=== PATIENT | male | born 1945 | race African-American/Black ===

== ENCOUNTER 2019-04-29 06:06 | Day surgery (SDC) | payer OTHER, MEDICARE ==
[2019-04-17 12:23] VITALS: BMI 34.9
[2019-04-29] MEDS ORDERED: CYCLOPENTOLATE HCL 1% OPHTH SOLN 2 ML BOTTLE OD SCH (07:00)
[2019-04-29] MEDS ORDERED: PHENYLEPHRINE 2.5% OPHTH SOLN 15 ML BOTTLE OD SCH (07:00)
[2019-04-29] MEDS ORDERED: TROPICAMIDE 1% OPHTH SOLN 15 ML BOTTLE OD SCH (07:00)
[2019-04-29] MEDS ORDERED: OFLOXACIN 0.3% OPHTHALMIC SOLUTION 5 ML BOTTLE OD SCH (07:00)
[2019-04-29] MEDS ORDERED: KETOROLAC TROMETHAMINE 0.5% EYE DROP 1 DROP DROPS OD SCH (07:00)
[2019-04-29] MEDS ORDERED: TROPICAMIDE 1% OPHTH SOLN 15 ML BOTTLE ONE (07:02)
[2019-04-29] MEDS ORDERED: EPINEPHrine/PF 1 MG/1 ML (1:1,000) AMPULE ONE (07:13)
[2019-04-29] MEDS ORDERED: BETAXOLOL HCL 0.25% OPHTHALMIC 10 ML DROPSBTL ONE (07:13)
[2019-04-29] MEDS ORDERED: BACITRACIN/POLYMYXIN OPH OINT 3.5 GM TUBE ONE (07:13)
[2019-04-29] MEDS ORDERED: TETRACAINE 0.5% OPHTH SOLN 2 ML BOTTLE ONE (07:13)
[2019-04-29] MEDS ORDERED: EPI-SHUGARCAINE (EPINEPHRINE 0.025% & LIDOCAINE-PF 0.75%) 4ML ONE (07:13)
[2019-04-29] MEDS ORDERED: POVIDONE-IODINE 5% OPHTHALMIC PREP 30 ML SOLUTION ONE (07:13)
[2019-04-29] MEDS ORDERED: NEO/POLYMYX B SULF/DEXAMETH OPHTHALMIC 5ML BOTTLE ONE (07:14)
[2019-04-29] MEDS ORDERED: OFLOXACIN 0.3% OPHTHALMIC SOLUTION 5 ML BOTTLE OD ONE ×3 (07:20→07:30)
[2019-04-29] MEDS ORDERED: TROPICAMIDE 1% OPHTH SOLN 15 ML BOTTLE OD ONE ×3 (07:20→07:30)
[2019-04-29] MEDS ORDERED: PHENYLEPHRINE 2.5% OPHTH SOLN 15 ML BOTTLE OD ONE ×3 (07:20→07:30)
[2019-04-29] MEDS ORDERED: KETOROLAC TROMETHAMINE 0.5% EYE DROP 1 DROP DROPS OD ONE ×3 (07:20→07:30)
[2019-04-29] MEDS ORDERED: CYCLOPENTOLATE HCL 1% OPHTH SOLN 2 ML BOTTLE OD ONE ×3 (07:20→07:30)
[2019-04-29] MEDS ORDERED: MIDAZOLAM HCL 2 MG/2 ML SINGLE DOSE VIAL ONE (07:50)
[2019-04-29] MEDS ORDERED: TRYPAN BLUE 0.5 ML DISP.SYRIN ONE (08:07)
[2019-04-29] MEDS ORDERED: ACETAMINOPHEN 325 MG TABLET (FP) PO PRN (09:07)
[2019-04-29 10:09] VITALS: TEMP 98.1
[2019-04-29 10:12] VITALS: BP 125/70; PULSE 68
--- NOTE | 2019-04-29 10:56 | OP ---
DATE OF OPERATION: 04/29/2019 PREOPERATIVE DIAGNOSIS: Cataract, right eye. POSTOPERATIVE DIAGNOSIS: Cataract, right eye, myotic pupil, hypermature cataract. SURGEON: Jeet Maria MD SEWING MACHINE OPERATOR: Edel Ponce MD ANESTHESIA: Topical with sedation. ESTIMATED BLOOD LOSS: Less than 1 mL. COMPLICATIONS: None. SPECIMENS: None. DESCRIPTION OF PROCEDURE: The patient was identified in the holding area. After all risks, benefits, and alternatives were explained to the patient, informed consent was obtained. The right eye was marked with a marking pen. The patient then entered the operating room on an eye stretcher. After a formal time-out was performed, topical tetracaine eye drops were instilled onto the right eye. The right eye was then prepped and draped in the usual sterile fashion. An eyelid speculum was placed beneath the eyelid of the right eye. Prior to prepping and draping, the patient was asked to sit up, and the cardinal axes of astigmatism were marked using a Toric bubble marker and a Toric marking pen. Then, again, the right eye was prepped and draped in the usual sterile fashion. Then after the eyelid speculum was placed beneath the eyelid, it was noted that the pupil was myotic about 3.5 mm. Therefore, a superotemporal paracentesis incision was created using a 15-degree blade. Prior to the incision, the axis of astigmatism was marked onto the cornea, which was noted to be about 17.5 degrees. That was performed using a Toric dial and Toric marking pen. After the 15-degree blade was used to make a superotemporal incision, preservative-free epinephrine and preservative-free lidocaine were then injected into the anterior chamber. The pupil continued to still stay myotic and not dilate anymore. Therefore, 5 equally spaced paracentesis incisions were created using a 15-degree blade, and an iris hook was inserted through each of the 5 created paracentesis incisions to capture and dilate the pupil to about 7 mm. Then, an intracameral air bubble was injected, and trypan blue was injected underneath the air bubble to stain the anterior capsule. Then a 2.4-mm keratome blade was used to make an infratemporal incision after viscoelastic was injected into the anterior chamber. Then a 360-degree continuous curvilinear capsulorrhexis was then created using bent cystotome and Utrata forceps. Hydrodissection was performed using balanced saline solution on a cannula. Phacoemulsification was introduced to disassemble and remove the nucleus in its entirety. Irrigation/aspiration was then used to remove any remaining cortical material from the eye. The capsular bag was reformed using viscoelastic. An [employer] Model [id number] with a power of 16.5 diopter serial number [id number] was inspected and found to be defect free and injected into the capsular bag. Irrigation/aspiration was then used to remove any remaining viscoelastic from the eye including posterior to the optic. Then the intraocular lens was rotated so that the axis of astigmatism on the optic matched the axis of astigmatism on the cornea, which was noted to be 17.5 degrees. Then all iris retractors were removed from the eye. A final irrigation and aspiration was then used to clean up any remaining debris and cortical material from the eye. Then all wounds were hydrated with balanced saline solution and noted to be watertight. Upon inspection, the lens was perfectly centered in the capsular bag with the axis of astigmatism at 17.5 degrees and the anterior chamber was deep. There was a red reflex present, and the eye had adequate pressure. Topical antibiotic eyedrops and ointment were then administered to the right eye. The eyelid speculum was removed from the right eye. The right eye was shielded. The patient tolerated the procedure well. Left the operating room in stable condition to follow up in the eye clinic tomorrow morning at 10 o'clock. JEET MARIA M.D. JOSE [id number]
== END 2019-04-29 10:00 | disposition home or self-care (01) ==
LOC: FASU 06:06 → EDSEX 10:30
PROVIDERS: ATTEND Ophthalmology
PROC: 08RJ3JZ Replacement of Right Lens with Synthetic Substitute, Percutaneous Approach (ICD-10-PCS; principal; 2019-04-29 08:18)
DX: H25.21 Age-related cataract, morgagnian type, right eye (principal); H57.03 Miosis

== ENCOUNTER 2021-11-29 06:04 | Day surgery (SDC) | payer OTHER, MEDICARE ==
[2021-11-24 12:45] VITALS: BMI 36.2
[2021-11-29] MEDS: PHENYLEPHRINE 2.5% OPHTH SOLN 15 ML BOTTLE OS SCH ×3 (07:15→07:25)
[2021-11-29] MEDS: OFLOXACIN 0.3% OPHTHALMIC SOLUTION 5 ML BOTTLE OS SCH ×3 (07:15→07:25)
[2021-11-29] MEDS: CYCLOPENTOLATE HCL 1% OPHTH SOLN 2 ML BOTTLE OS SCH ×3 (07:15→07:25)
[2021-11-29] MEDS: KETOROLAC TROMETHAMINE 0.5% EYE DROP 1 DROP DROPS OS SCH ×3 (07:15→07:25)
[2021-11-29] MEDS: TROPICAMIDE 1% OPHTH SOLN 15 ML BOTTLE OS SCH ×3 (07:15→07:25)
[2021-11-29] MEDS ORDERED: NEO/POLYMYX B SULF/DEXAMETH OPHTHALMIC 5ML BOTTLE ONE (07:16)
[2021-11-29] MEDS ORDERED: ACETYLCHOLINE 1:100 INTRA-OCUL 20 MG/2 ML KIT ONE (07:16)
[2021-11-29] MEDS ORDERED: EPINEPHrine/PF 1 MG/1 ML (1:1,000) AMPULE ONE (07:16)
[2021-11-29] MEDS ORDERED: PHENYLEPHRINE/KETOROLAC 4 ML VIAL IO ONE (07:16)
[2021-11-29] MEDS ORDERED: BACITRACIN/POLYMYXIN OPH OINT 3.5 GM TUBE ONE (07:16)
[2021-11-29] MEDS ORDERED: TETRACAINE 0.5% OPHTH SOLN 2 ML BOTTLE ONE (07:16)
[2021-11-29] MEDS ORDERED: POVIDONE-IODINE 5% OPHTHALMIC PREP 30 ML SOLUTION ONE (07:16)
[2021-11-29] MEDS ORDERED: BETAXOLOL HCL 0.25% OPHTHALMIC 10 ML DROPSBTL ONE (07:16)
[2021-11-29] MEDS ORDERED: BSS (NA/CA/MG/K) BALANCED SALT SOLUTION OPHTH SOLN 15 ML BOTTLE ONE (07:16)
[2021-11-29] MEDS ORDERED: EPI-SHUGARCAINE (EPINEPHRINE 0.025% & LIDOCAINE-PF 0.75%) 4ML ONE (07:16)
[2021-11-29] MEDS ORDERED: TROPICAMIDE 1% OPHTH SOLN 15 ML BOTTLE ONE (07:19)
[2021-11-29 07:38] VITALS: RESP 16
[2021-11-29] MEDS ORDERED: MIDAZOLAM HCL 2 MG/2 ML SINGLE DOSE VIAL ONE (08:23)
[2021-11-29] MEDS ORDERED: ACETAMINOPHEN 325 MG TABLET (FP) PO PRN (09:53)
[2021-11-29 11:17] VITALS: TEMP 97.7
[2021-11-29 13:18] VITALS: BP 130/77; PULSE 54
== END 2021-11-29 10:50 | disposition home or self-care (01) ==
LOC: FASU 06:04
PROVIDERS: ATTEND Ophthalmology
PROC: 08RK3JZ Replacement of Left Lens with Synthetic Substitute, Percutaneous Approach (ICD-10-PCS; principal; 2021-11-29 08:49)
DX: H25.89 Other age-related cataract (principal)
CPT/HCPCS: 66984; V2632; J1097